=== PATIENT | female | born 1990 ===

== ENCOUNTER → 2019-05-03 | Outpatient (CLI) | payer OTHER | END | disposition home or self-care (01) | LOC: LAB 17:00 → LAB SHORT 17:00 | DX: E55.9 Vitamin D deficiency, unspecified (principal) | CPT/HCPCS: 82306 ==

== ENCOUNTER → 2020-08-04 | Outpatient (CLI) | payer OTHER | LOC: LAB 18:00 → LAB SHORT 18:00 | DX: R20.8 Other disturbances of skin sensation (principal) | CPT/HCPCS: 87070; 87077; 87186; 87205 ==

== ENCOUNTER 2021-04-09 13:12 | Day surgery (SDC) | payer OTHER ==
[~2021-04-09] VITALS: Ht 162.6 cm; Wt 71.5 kg
[~2021-04-09 13:12] MED LIST: AUROVELA FE PO; BUPR100 PO; BUSP5 PO; THERA-D2000 UNIT PO
--- NOTE | 2021-04-09 15:08 | NUR ---
04/09/21 1508 ROXANA DIAZ LATE ENTRY- PT UPDATED AT 1435 THAT PREVIOUS PROCEDURE IS RUNNING LONG. PT COMFORTABLE, CALL LIGHT WITHIN REACH.
--- NOTE | 2021-04-09 15:43 | NUR ---
04/09/21 1543 Aleida Muller PATIENT TO PACU ON GURNEY. PATIENT WAKING AND TALKING, ASKING QUESTIONS. SHE IS ABLE TO ANSWER QUESTIONS AND STATES NO PAIN OR PROBLEMS AT THIS TIME. PATIENT VERBALIZES THAT SHE IS COMFORTABLE AND HAS NO NEEDS AT THIS TIME.
--- NOTE | 2021-04-09 16:27 | NUR ---
04/09/21 1627 Aleida Muller PATIENT STABLE THROUGHOUT STEP DOWN RECOVERY. SHE WAS COMFORTABLE AND NEVER C/O OF PAIN OR NAUSEA. SHE WAS ABLE TO EAT AND DRINK. ALL DISCHARGE INSTRUCTIONS WERE DISCUSSED WITH PATIENT AT LENGTH AND ALL QUESTIONS ANSWERED. SHE WAS GIVEN A JADE BOTTLE TO GO HOME WITH AND THIS WAS EXPLAINED TO HER HOW TO USE THIS BEST. PATIENT VERBALIZED THAT SHE WAS READY TO GO HOME. PATIENT WAS DISCHARGED IN STABLE CONDITION
--- NOTE | 2021-04-09 16:42 | NUR ---
04/09/21 1642 Romeo Mason 0.15MG EPI ADDED TO 30ML 0.5% [place] TO ACHIEVE SOLUTION OF 1:200,000. 7 ML'S OF THIS SOLUTION INJ INTO OPSITE BY DR FRIEDMAN AT 1515.
== END 2021-04-09 14:20 | disposition home or self-care (01) ==
LOC: ORSCSDS 13:12
PROVIDERS: Obstetrics & Gynecology
PROC: 0UBK7ZZ Excision of Hymen, Via Natural or Artificial Opening (ICD-10-PCS; principal; 2021-04-09 14:30)
DX: N94.2 Vaginismus (principal); N89.6 Tight hymenal ring; Z12.4 Encounter for screening for malignant neoplasm of cervix
CPT/HCPCS: G0123; J0171; J1100; J1885; J2250; J2405; J2704; J3010; J7120

== ENCOUNTER 2021-12-22 17:58 | Observation (INO) | payer BC ==
[~2021-12-22] VITALS: Ht 162.6 cm; Wt 77.1 kg
[2021-12-22 18:53] LABS: BASOPHILS ABSOLUTE AUTO 0.04 K/mm3 (0.00-0.23); BASOPHILS PERCENT AUTO 0 % (0-2); EOSINOPHILS ABSOLUTE AUTO 0.14 K/mm3 (0.00-0.68); EOSINOPHILS PERCENT AUTO 1 % (0-6); Hematocrit 40.4 % (33.0-51.0); Hemoglobin 13.2 g/dL (11.5-16.0); IMMATURE GRAN ABSOLUTE AUTO 0.02 K/mm3 (0.00-0.10); IMMATURE GRAN PERCENT AUTO 0 % (0-1); LYMPHOCYTES ABSOLUTE AUTO 3.22 K/mm3 (0.84-5.20); LYMPHOCYTES PERCENT AUTO 33 % (21-46); MONOCYTES ABSOLUTE AUTO 0.77 K/mm3 (0.16-1.47); MONOCYTES PERCENT AUTO 8 % (4-13); Mean Corpuscular HGB 30.4 pg (26.0-34.0); Mean Corpuscular HGB Conc 32.7 g/dL (31.5-36.5); Mean Corpuscular Volume 93 fL (80-100); Mean Platelet Volume 10.1 fL (9.1-12.4); NEUTROPHILS ABSOLUTE AUTO 5.69 K/mm3 (1.96-9.15); NEUTROPHILS PERCENT AUTO 58 % (41-73); Platelet Count 304 K/mm3 (150-400); RDW Coefficient Variation 12.8 % (11.7-14.2); RDW Standard Deviation 43.8 fL (35.1-46.3); Red Blood Cell Count 4.34 M/mm3 (3.80-5.20); White Blood Cell Count 9.88 K/mm3 (4.00-11.30)
[2021-12-22 18:56] LABS: Source, Urine Clean Catch
[2021-12-22 19:02] LABS: Appearance, Urine Clear (Clear); Bilirubin, Urine Neg (Neg); Blood, Urine 2+ (Neg); Color, Urine Yellow (P-Yellow); Glucose Qualitative, Urine Neg (Neg); Ketones, Urine Neg (Neg); Leukocyte Esterase, Urine 2+ (Neg); Nitrite, Urine Neg (Neg); Protein, Urine Neg (Neg); Specific Gravity, Urine 1.005 (1.003-1.022); Urobilinogen, Urine NORM (Normal); pH, Urine 6.5 (5.0-8.0)
[2021-12-22 19:12] LABS: Alanine Aminotransfer (ALT/SGP 53 U/L (12-78); Albumin, Blood 3.7 g/dL (3.4-5.0); Albumin/Globulin Ratio 0.8 (0.8-1.8); Alk Phos 58 U/L (50-136); Anion Gap 6 mmol/L (6-16); Aspartate Aminotrans (AST/SGOT 28 U/L (12-37); Bilirubin, Total 0.4 mg/dL (0.1-1.0); Blood Urea Nitrogen 11 mg/dL (8-24); CO2, Blood 25 mmol/L (21-32); Calcium, Blood 9.1 mg/dL (8.5-10.1); Chloride, Blood 107 mmol/L (98-108); Creatinine, Blood 0.65 mg/dL (0.40-1.00); Globulin, Blood 4.4 g/dL (2.2-4.0); Glomerular Filtration Rate >60 (60-); Glucose, Blood 94 mg/dL (70-99); Potassium, Blood 3.7 mmol/L (3.5-5.5); Sodium, Blood 138 mmol/L (136-145); Total Protein, Blood 8.1 g/dL (6.4-8.2)
[2021-12-22 19:22] LABS: Bacteria Few /hpf; Squamous Epithelial Cells Rare /hpf (Few)
[2021-12-22 19:23] LABS: Mucus Light (0-Heavy)
[2021-12-22 22:53] LABS: Influenza A, PCR NEGATIVE (NEGATIVE); Influenza B, PCR NEGATIVE (NEGATIVE); Resp Syncytial Virus, PCR NEGATIVE (NEGATIVE); SARS-Cov-2 (COVID-19) PCR, MMC NEGATIVE (NEGATIVE)
--- NOTE | 2021-12-23 04:53 | NUR ---
SHIFT SUMMARY SINCE ARRIVAL TO THE FLOOR PATIENT HAS BEEN RESTING COMFORTABLY. NO PAIN REPORT AND NO N/V. NPO SINCE MIDNIGHT. IND IN THE ROOM. VOIDING WELL. VITAL SIGNS STABLE. WILL CONTINUE TO MONITOR AND REPORT TO ONCOMING RN.
--- NOTE | 2021-12-23 10:10 | NUR ---
PT SIGNED REFUSAL OF BLOOD TRANSFUSION IN CASE OF EMERGENT NEED R/T LUTHER[place] PLACED IN FRONT OF PT CHART.
--- NOTE | 2021-12-23 11:27 | NUR ---
PT TRANSFERED TO [facility]IA [facility] FROM FLOOR. History, Chart, Medications and Allergies reviewed before start of procedure. Lungs clear T/O to Auscultation. Patient confirms NPO status and agrees with scheduled surgery. Pre-Op teaching done. Pt verbalizes understanding. Patient States Post-Procedure ride home has been arranged.
--- NOTE | 2021-12-23 16:22 | NUR ---
PT RETURNED TO ROOM FROM OR AT APROX 1500. PT TEARFUL BUT DENIES PAIN. LAP SITES X'S 3 W/GAUZE AND TEGADERM C/D/I. POST OP VITALS STABLE ON ARRIVAL TO UNIT. DENIES N/V, GIVEN CLEAR LIQUIDS WILL ADVANCE TOLERATED.
--- NOTE | 2021-12-23 19:10 | NUR ---
DISCHARGE PT DISCHARGED HOME FROM UNIT AT APROX 1900. PT TOLERATING PO WITH NO N/V, PAIN TOLERABLE, VOIDING. PT GIVEN WRITTEN AND VERBAL DC INSTRUCTIONS AND VERBALIZED UNDERSTANDING. WC TO CAR
== END 2021-12-23 19:00 | disposition home or self-care (01) ==
LOC: ER 17:58 → SURS 19:59 → ER 22:42 → SURS 22:42
PROVIDERS: Emergency Medicine; Physician Assistant; Surgery; ADMIT Surgery
PROC: 0DTJ4ZZ Resection of Appendix, Percutaneous Endoscopic Approach (ICD-10-PCS; principal; 2021-12-23 11:30)
DX: K35.80 Unspecified acute appendicitis (principal); Z88.0 Allergy status to penicillin; Z20.822 Contact with and (suspected) exposure to COVID-19
CPT/HCPCS: 0241U; 36415; 74177; 80053; 81001; 84703; 85025; 87086; 88304; 96374; 96376; 99285-25; G0378; J0694; J1885; J2250; J2405; J2704; J3010; J7030; J7120; Q9967

== ENCOUNTER → 2021-12-22 | Outpatient (CLI) | payer OTHER ==
[2021-12-22 11:14] LABS: BASOPHILS ABSOLUTE AUTO 0.05 K/mm3 (0.00-0.23); BASOPHILS PERCENT AUTO 1 % (0-2); EOSINOPHILS ABSOLUTE AUTO 0.08 K/mm3 (0.00-0.68); EOSINOPHILS PERCENT AUTO 1 % (0-6); Hematocrit 40.3 % (33.0-51.0); Hemoglobin 13.3 g/dL (11.5-16.0); IMMATURE GRAN ABSOLUTE AUTO 0.02 K/mm3 (0.00-0.10); IMMATURE GRAN PERCENT AUTO 0 % (0-1); LYMPHOCYTES PERCENT AUTO 26 % (21-46); MONOCYTES PERCENT AUTO 6 % (4-13); Mean Corpuscular HGB 30.5 pg (26.0-34.0); Mean Corpuscular Volume 92 fL (80-100); Mean Platelet Volume 9.8 fL (9.1-12.4); NEUTROPHILS ABSOLUTE AUTO 6.74 K/mm3 (1.96-9.15); NEUTROPHILS PERCENT AUTO 67 % (41-73); Platelet Count 260 K/mm3 (150-400); RDW Coefficient Variation 12.9 % (11.7-14.2); RDW Standard Deviation 43.9 fL (35.1-46.3); Red Blood Cell Count 4.36 M/mm3 (3.80-5.20); White Blood Cell Count 10.09 K/mm3 (4.00-11.30)
[2021-12-22 11:20] LABS: Anion Gap 9 mmol/L (6-16); Blood Urea Nitrogen 11 mg/dL (8-24); Bun/Creatinine Ratio 16.9 (12.0-20.0); CO2, Blood 26 mmol/L (21-32); Calcium, Blood 9.1 mg/dL (8.5-10.1); Chloride, Blood 103 mmol/L (98-108); Creatinine, Blood 0.65 mg/dL (0.40-1.00); Glomerular Filtration Rate >60 (60-); Glucose, Blood 91 mg/dL (70-99); Sodium, Blood 138 mmol/L (136-145)
== END | disposition home or self-care (01) ==
LOC: LAB SHORT 11:10
PROVIDERS: Chiropractor
DX: R10.31 Right lower quadrant pain (principal)
CPT/HCPCS: 80048; 85025

== ENCOUNTER → 2021-12-22 | Outpatient (CLI) | payer OTHER | END | disposition home or self-care (01) | LOC: LAB SHORT 13:22 | DX: N39.0 Urinary tract infection, site not specified (principal) | CPT/HCPCS: 87086 ==

== ENCOUNTER → 2022-07-05 | Outpatient (CLI) | payer BC | END | disposition home or self-care (01) | LOC: LAB 14:35 → LAB SHORT 14:35 | DX: R30.0 Dysuria (principal) | CPT/HCPCS: 87077; 87086; 87186 ==

== ENCOUNTER → 2022-07-26 | Outpatient (CLI) | payer BC | LOC: LAB 04:40 → LAB SHORT 04:40 | DX: N39.0 Urinary tract infection, site not specified (principal) | CPT/HCPCS: 87086 ==

== ENCOUNTER → 2023-04-04 | Outpatient (CLI) | payer BC | END | disposition home or self-care (01) | LOC: LAB SHORT 10:40 → LAB 10:40 | DX: N39.0 Urinary tract infection, site not specified (principal) | CPT/HCPCS: 87086 ==

== ENCOUNTER → 2023-06-24 | Outpatient (CLI) | payer BC | END | disposition home or self-care (01) | LOC: LAB SHORT 13:23 → LAB 13:23 | DX: R30.0 Dysuria (principal) | CPT/HCPCS: 87077; 87086; 87186 ==

== ENCOUNTER 2023-11-10 09:39 | Day surgery (SDC) | payer BC ==
[~2023-11-10] VITALS: Ht 162.6 cm; Wt 70.9 kg
[~2023-11-10 09:39] MED LIST changes: -BUPR100 PO; +BUPROPION XL150 M1 PO; +GLYDO6 M2 TOP; +Lactated Ringer's 1,000 ML IV ONE; +OMEP20ER PO; -THERA-D2000 UNIT PO; +Vitamin D400 UNI1 PO; +propofoL 50 ML IV ONE
[2023-11-10] MEDS ORDERED: BIRTH CONTROL (09:58)
[2023-11-10] MEDS ORDERED: Adipex-P37.5 M1 (09:59)
[2023-11-10] MEDS ORDERED: Lactated Ringer's 1,000 ML IV ONE (10:23)
[2023-11-10 11:50] VITALS: BP 112/72
== END 2023-11-10 11:50 | disposition home or self-care (01) ==
LOC: ORSCSDS 09:39
PROVIDERS: Surgery
PROC: 0DB68ZX Excision of Stomach, Via Natural or Artificial Opening Endoscopic, Diagnostic (ICD-10-PCS; principal; 2023-11-10 10:45)
PROC: 0DB48ZX Excision of Esophagogastric Junction, Via Natural or Artificial Opening Endoscopic, Diagnostic (ICD-10-PCS; principal; 2023-11-10 10:45)
DX: R10.13 Epigastric pain (principal); K21.9 Gastro-esophageal reflux disease without esophagitis; K29.70 Gastritis, unspecified, without bleeding; Z79.899 Other long term (current) drug therapy
CPT/HCPCS: 88305; 88342; J2704; J7120